=== PATIENT | female | born 1995 | race Caucasian/White ===

== ENCOUNTER 2020-10-07 11:57 | Inpatient (IN) ==
[2020-10-07] MEDS ORDERED: Dinoprostone 10 MG VAG.SUPP VAGINAL ONE (13:03)
[2020-10-07] MEDS ORDERED: Lactated Ringers 1000 ml BAG 1,000 ML IV ONE (13:03)
[2020-10-07] MEDS ORDERED: Buffered Lidocaine 1% SYRIN 1 ml INTRADERM ONE (13:03)
[2020-10-07] MEDS ORDERED: Lactated Ringers 1000 ml BAG 1,000 ML IV SCH (14:00)
[2020-10-07] MEDS ORDERED: Morphine 10 MG/ML VIAL (1 ml) IM ONE (21:07)
[2020-10-08 11:35] LABS: Urine Benzodiazepine Screen None Detected (None Detect); Urine Cannabinoids Screen None Detected (None Detect); Urine Opiates Screen None Detected (None Detect)
[2020-10-08] MEDS ORDERED: Oxytocin in LR 20 UNITS/1,000 ML BAG IVPB SCH (14:00)
[2020-10-08 16:14] LABS: ABS Eosinophils 0.1 10^3/ul (0-0.6); ABS Lymphocytes 1.1 10^3/ul (1.0-4.8); ABS Monocytes 0.6 10^3/ul (0-0.8); ABS Neutrophils 8.8 10^3/ul (1.5-7.7); Eosinophil % 0.5 %; Hematocrit 34 % (35-47); Hemoglobin 11.4 g/dL (12.0-16.0); Lymphocyte % 10.1 %; Mean Corpuscular HGB Conc 33 g/dL (31-36); Mean Corpuscular Hemoglobin 31 pg (27-31); Mean Corpuscular Volume 94 fL (80-97); Mean Platelet Volume 10.4 fL (7.4-10.4); Nucleated Red Blood Cells % 0.1; Platelet Count 162 10^3/uL (150-450); Red Blood Count 3.65 10^6 /uL (3.70-4.87); Red Cell Distribution Width 13 % (10-15); White Blood Count 10.6 10^3/uL (3.5-10.8)
[2020-10-08] MEDS ORDERED: OBEPIDURAL 250 ML EPIDURAL ONE (19:13)
[2020-10-08] MEDS ORDERED: Lactated Ringers 1000 ml BAG 500 ML IV PRN ×2 (20:11)
[2020-10-08] MEDS ORDERED: Lactated Ringers 1000 ml BAG 1,000 ML IV ONE (20:11)
[2020-10-08] MEDS ORDERED: Sodium Citrate/Citric Acid LIQ 15 ML UDC PO PRN (20:11)
[2020-10-08] MEDS ORDERED: Phenylephrine 40 mcg/mL 10mL (400mcg) SYRINGE IV PUSH PRN ×2 (20:11)
[2020-10-08] MEDS ORDERED: Lactated Ringers 1000 ml BAG 1,000 ML IV SCH ×2 (21:00)
[2020-10-08] MEDS ORDERED: OBEPIDURAL 250 ML EPIDURAL SCH (21:00)
[2020-10-08 21:48] LABS: Urine Appearance Clear; Urine Bilirubin Negative (Negative); Urine Blood Negative (Negative); Urine Color Yellow; Urine Glucose Negative (Negative); Urine Ketones Trace (Negative); Urine Nitrite Negative (Negative); Urine Protein Negative (Negative); Urine Specific Gravity 1.011 (1.002-1.030); Urine Urobilinogen Negative (Negative)
[2020-10-09] MEDS ORDERED: Glycerin ADULT 2.4 gm SUPP PR PRN (06:43)
[2020-10-09] MEDS ORDERED: Oxytocin in LR 20 UNITS/1,000 ML BAG IVPB SCH (07:00)
[2020-10-09] MEDS ORDERED: Lactated Ringers 1000 ml BAG 1,000 ML IV SCH (07:00)
[2020-10-09] MEDS: Witch Hazel PAD JAR TOPICAL PRN (09:27)
[2020-10-09] MEDS: Dibucaine 1% OINT 28.35 GM TUBE PR PRN (09:27)
[2020-10-09] MEDS ORDERED: Lidocaine 1% VIAL 10 MG/ML VIAL ONE (13:55)
[2020-10-10] MEDS: Dibucaine 1% OINT 28.35 GM TUBE PR PRN ×2 (03:12→12:41)
[2020-10-10] MEDS: Witch Hazel PAD JAR TOPICAL PRN (03:12)
[2020-10-10 08:01] LABS: ABS Eosinophils 0.1 10^3/ul (0-0.6); ABS Lymphocytes 1.3 10^3/ul (1.0-4.8); ABS Monocytes 0.6 10^3/ul (0-0.8); ABS Neutrophils 9.8 10^3/ul (1.5-7.7); Eosinophil % 0.6 %; Hematocrit 29 % (35-47); Lymphocyte % 11.3 %; Mean Corpuscular HGB Conc 34 g/dL (31-36); Mean Corpuscular Hemoglobin 32 pg (27-31); Mean Corpuscular Volume 93 fL (80-97); Mean Platelet Volume 9.4 fL (7.4-10.4); Platelet Count 175 10^3/uL (150-450); Red Blood Count 3.14 10^6 /uL (3.70-4.87); Red Cell Distribution Width 13 % (10-15); White Blood Count 11.9 10^3/uL (3.5-10.8)
[2020-10-11 07:23] VITALS: BP 116/68
[2020-10-11] MEDS: Dibucaine 1% OINT 28.35 GM TUBE PR PRN (10:13)
== END 2020-10-11 14:30 | disposition home or self-care (01) | DRG 560 ==
LOC: MCHOBOUT 11:57 → MCHOB 13:55
PROVIDERS: ADMIT Midwife; ATTEND Midwife

== ENCOUNTER 2023-05-30 08:05 | Inpatient (IN) ==
[2023-05-30] MEDS ORDERED: Buffered Lidocaine 1% SYRIN 1 ml INTRADERM ONE (09:03)
[2023-05-30] MEDS ORDERED: Lidocaine 1% VIAL 10 MG/ML 30 ML VIAL INJ PRN (09:03)
[2023-05-30] MEDS ORDERED: Prochlorperazine 5 mg/ml 2 ml VIAL (10 mg) IV PRN (09:03)
[2023-05-30] MEDS: Oxytocin in LR 20,000 MILLI.UNIT/1,000 ML BAG IV SCH (10:00)
[2023-05-30] MEDS: Lactated Ringers 1000 ml BAG 1,000 ML IV ONE (10:00)
[2023-05-30 10:10] LABS: ABS Basophils 0.1 10^3/uL (0.0-0.1); ABS Eosinophils 0.1 10^3/uL (0.0-0.5); ABS Lymphocytes 1.4 10^3/uL (1.0-4.8); ABS Monocytes 0.6 10^3/uL (0.0-0.9); ABS Neutrophils 8.9 10^3/uL (1.5-7.6); ABS Nucleated RBC 0.01 10^3/ul; Eosinophil % 0.9 %; Hemoglobin 11.9 g/dL (11.5-14.3); Lymphocyte % 12.9 %; Mean Corpuscular Volume 91.5 fL (80-97); Mean Platelet Volume 9.9 fL (7.5-11.2); Nucleated Red Blood Cells % 0.1 %/100WBC (0.0-0.8); Platelet Count 165 10^3/uL (150-450); Red Blood Count 3.72 10^6/uL (3.63-4.92); Red Cell Distribution Width 12.6 % (12-17); White Blood Count 11.1 10^3/uL (3.8-11.8)
[2023-05-30 11:18] LABS: Urine Benzodiazepine Screen None Detected (None Detect); Urine Opiates Screen None Detected (None Detect)
[2023-05-30] MEDS: Calcium Carb (TUMS) 500 mg CHEW TAB PO PRN (13:19)
[2023-05-30] MEDS ORDERED: Lidocaine 1.5% EPI 1:200,000 30 ML SDV ONE (13:27)
[2023-05-30] MEDS ORDERED: Sodium Citrate/Citric Acid LIQ 15 ML UDC PO PRN (14:43)
[2023-05-30] MEDS ORDERED: Lactated Ringers 1000 ml BAG 1,000 ML IV ONE (14:43)
[2023-05-30] MEDS ORDERED: Phenylephrine 40 mcg/mL 10mL (400mcg) SYRINGE IV PUSH PRN ×2 (14:43)
[2023-05-30] MEDS: OBEPIDURAL (200 ML) 200 ML EPIDURAL ONE (14:49)
[2023-05-30] MEDS ORDERED: Lactated Ringers 1000 ml BAG 1,000 ML IV SCH ×2 (15:00→19:00)
[2023-05-30 16:17] LABS: Urine Appearance Clear; Urine Bilirubin Negative (Negative); Urine Blood 2+ (Negative); Urine Color Colorless; Urine Glucose 2+ (>=150 mg/dL) (Negative); Urine Ketones Negative (Negative); Urine Nitrite Negative (Negative); Urine Protein Negative (Negative); Urine Specific Gravity 1.008 (1.002-1.030); Urine Urobilinogen Negative (Negative); Urine pH 6.5 (5.0-8.0)
[2023-05-30 16:34] LABS: Urine Bacteria Absent /HPF (Absent); Urine Red Blood Cell 3+(>10/hpf) /HPF (0-Trace); Urine Squamous Epithelial Cell Present /HPF (Absent); Urine White Blood Cell Trace(0-5/hpf) /HPF (0-Trace)
[2023-05-30] MEDS ORDERED: Glycerin ADULT 2.4 gm SUPP PR PRN (18:56)
[2023-05-30] MEDS: Lactated Ringers 1000 ml BAG 1,000 ML IV SCH (19:05)
[2023-05-30] MEDS: Witch Hazel PAD JAR TOPICAL PRN (20:22)
[2023-05-30] MEDS: Dibucaine 1% OINT 28.35 GM TUBE PR PRN (20:22)
[2023-05-30] MEDS: OBEPIDURAL (200 ML) 200 ML EPIDURAL SCH (20:43)
[2023-05-30] MEDS: Ondansetron 4 mg VIAL 2 MG/ML 2 ml VIAL IV PRN (23:16)
[2023-05-31 05:57] LABS: ABS Eosinophils 0.1 10^3/uL (0.0-0.5); ABS Lymphocytes 1.6 10^3/uL (1.0-4.8); ABS Monocytes 0.7 10^3/uL (0.0-0.9); ABS Neutrophils 8.9 10^3/uL (1.5-7.6); ABS Nucleated RBC 0.01 10^3/ul; Eosinophil % 0.6 %; Hematocrit 26.2 % (35-45); Hemoglobin 9.1 g/dL (11.5-14.3); Lymphocyte % 14.1 %; Mean Corpuscular Hemoglobin 31.7 pg (27-33); Mean Corpuscular Hgb Conc 34.9 g/dL (31-36); Mean Corpuscular Volume 90.9 fL (80-97); Mean Platelet Volume 9.6 fL (7.5-11.2); Nucleated Red Blood Cells % 0.1 %/100WBC (0.0-0.8); Platelet Count 134 10^3/uL (150-450); Red Blood Count 2.88 10^6/uL (3.63-4.92); Red Cell Distribution Width 12.8 % (12-17); White Blood Count 11.3 10^3/uL (3.8-11.8)
[2023-06-01 07:56] VITALS: BP 120/69
[2023-06-01] MEDS: Varicella Virus Vaccine Live 0.5 ML VIAL SUBCUT ONE (14:06)
== END 2023-06-01 14:50 | disposition home or self-care (01) | DRG 560 ==
LOC: MCHOBOUT 08:05 → MCHOB 08:49
PROVIDERS: ADMIT Registered Nurse; ATTEND Registered Nurse